=== PATIENT | male | born 1975 | race Caucasian/White ===

== ENCOUNTER 2017-12-17 00:19 | Emergency (ER) | payer BC ==
[~2017-12-17] VITALS: Ht 175.3 cm; Wt 76.2 kg
[2017-12-17 00:24] VITALS: Ht 175.3 cm; Wt 76.2 kg
[2017-12-17 01:20] VITALS: BP 130/82
== END 2017-12-17 01:20 | disposition home or self-care (01) ==
LOC: ED 00:19
DX: H10.9 Unspecified conjunctivitis (principal)

== ENCOUNTER 2020-04-01 19:29 | Emergency (ER) | payer OTHER ==
[~2020-04-01] VITALS: Ht 170.2 cm; Wt 71.7 kg
[2020-04-01 20:01] VITALS: Ht 170.2 cm; Wt 71.7 kg
[2020-04-01 20:23] LABS: BASOPHIL % 0.5 % (0-2); PLATELET COUNT 213 x10^3mcL (130-400); RED CELL DISTRIBUTION WIDTH 11.8 % (11.5-14.5)
[2020-04-01 20:36] LABS: CALCIUM 8.6 mg/dL (8.5-10.1); CARBON DIOXIDE 30.2 mmol/L (21-32); CHLORIDE SERUM 94 mmol/L (98-107); CREATININE SERUM 1.1 mg/dL (0.7-1.3); GFR1 > 60 mL/min; GLUCOSE SERUM 370 mg/dL (74-106); POTASSIUM SERUM 4.2 mmol/L (3.5-5.1); SODIUM SERUM 133 mmol/L (136-145)
[2020-04-01 20:41] LABS: ALBUMIN 3.4 g/dL (3.4-5.0); ALKALINE PHOSPHATASE 95 U/L (46-116); ALT/SGPT 30 U/L (16-63); AST/SGOT 28 U/L (15-37); BILIRUBIN TOTAL 0.57 mg/dL (0.20-1.00); LIPASE 465 IU/L (73-393); TOTAL PROTEIN, SERUM 7.8 g/dL (6.4-8.2)
[2020-04-01 23:31] VITALS: BP 118/72
== END 2020-04-02 00:06 | disposition home or self-care (01) ==
LOC: ED 19:29
PROVIDERS: Specialist
DX: U07.1 COVID-19 (principal); K85.90 Acute pancreatitis without necrosis or infection, unspecified; K29.70 Gastritis, unspecified, without bleeding
CPT/HCPCS: U0003